=== PATIENT | male | born 1970 | race Caucasian/White ===

== ENCOUNTER 2017-09-16 18:35 | Inpatient (IN) | payer OTHER ==
--- NOTE | 2017-09-16 19:05 | PDOC ---
History of Present Illness - General Chief Complaint: Blood Pressure Problem Stated Complaint: ELEVATED BLOOD PRESSURE Time Seen by Provider: 09/16/17 19:05 Past History - Past Medical History Allergies/Adverse Reactions: Allergies Allergy/AdvReac Type Severity Reaction Status Date / Time No Known Allergies Allergy Verified 09/16/17 18:52 Home Medications: Ambulatory Orders NK [No Known Home Medication] 09/16/17 COPD: No HTN: Yes - Suicide/Smoking/Psychosocial Hx Smoking History: Never smoked Hx Alcohol Use: No Drug/Substance Use Hx: No *Physical Exam - Vital Signs Last Vital Signs Temp Pulse Resp BP Pulse Ox 99.0 F 66 20 172/105 99 09/16/17 18:52 09/16/17 18:52 09/16/17 18:52 09/16/17 18:52 09/16/17 18:52 *DC/Admit/Observation/Transfer - Referrals Referrals: Krystal Castorena MD [Primary Care Provider] - - Patient Instructions - Post Discharge Activity
--- NOTE | 2017-09-16 19:09 | PDOC ---
History of Present Illness - General Chief Complaint: Blood Pressure Problem Stated Complaint: ELEVATED BLOOD PRESSURE Time Seen by Provider: 09/16/17 19:05 - History of Present Illness Initial Comments: 47 year old male with PMH of HTN (medication non-compliant for the past two years) presenting with nausea, lightheadedness, and general weakness since this AM. He woke up with these symptoms suddenly this AM which relapsed and remitted until this afternoon at which point he went to [facility] and was found to be hypertensive to 170s. Denies headache, chest pain, vomiting, visual symptoms, diarrhea, cough, or other symptoms. 09/16/17 19:33 Past History - Past Medical History Allergies/Adverse Reactions: Allergies Allergy/AdvReac Type Severity Reaction Status Date / Time No Known Allergies Allergy Verified 09/16/17 18:52 Home Medications: Ambulatory Orders NK [No Known Home Medication] 09/16/17 COPD: No HTN: Yes - Suicide/Smoking/Psychosocial Hx Smoking History: Never smoked Hx Alcohol Use: No Drug/Substance Use Hx: No Review of Systems - Review of Systems Constitutional: No: Chills, Diaphoresis, Fever HEENTM: No: Eye Pain, Blurred Vision, Tearing Respiratory: No: Cough, Orthopnea, Shortness of Breath Cardiac (ROS): No: Chest Pain, Edema, Irregular Heart Rate ABD/GI: No: Diarrhea, Nausea, Poor Appetite, Vomiting : No: Dysuria, Discharge, Frequency Musculoskeletal: No: Back Pain, Gout, Joint Pain Integumentary: No: Lumps, Pallor, Pruritus, Rash Neurological: No: Headache, Numbness, Paresthesia Psychiatric: No: Anxiety, Depression Endocrine: No: Excessive Sweating, Flushing *Physical Exam - Vital Signs Last Vital Signs Temp Pulse Resp BP Pulse Ox 99.0 F 66 20 172/105 99 09/16/17 18:52 09/16/17 18:52 09/16/17 18:52 09/16/17 18:52 09/16/17 18:52 - Physical Exam General Appearance: Yes: Nourished, Appropriately Dressed. No: Apparent Distress HEENT: positive: EOMI, RACHAEL, Normal ENT Inspection, Normal Voice Neck: positive: Trachea midline, Normal Thyroid, Supple. negative: Tender, Rigid Respiratory/Chest: positive: Lungs Clear, Normal Breath Sounds. negative: Chest Tender, Respiratory Distress, Accessory Muscle Use Cardiovascular: positive: Regular Rhythm, Regular Rate Gastrointestinal/Abdominal: positive: Normal Bowel Sounds, Flat, Soft. negative : Tender Musculoskeletal: positive: Normal Inspection. negative: CVA Tenderness Extremity: positive: Normal Capillary Refill, Normal Inspection, Normal Range of Motion. 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 Will get head CT and basic labs. Spoke to Dr. Mckinnon and he had no records of the previous medications but would be happy to see the patient early next week baring that all the results are normal. 09/16/17 19:46 Labs are significant for hypokalemia (3.0), hypomagnesemia (1.4), hypocalcemia ( 5.6 corrected to 6.9), hypoalbunemia, hyperchloremia, and hypernatremia. EKG changes include V1 T wave inversion with possible Q wave inversion in lead III. QTc 426, SC 162, LVH, normal axis, no ST wave changes. 09/16/17 21:01 Spoke to Ino and will admit patient to tele with [place] as a consult given this could have been a presyncopal sensation related to these severe electrolyte derangement. Given the constellation of electrolyte abnormalities, hyperaldosternism should be investigated particualrly in the setting of hypertension. Patient signed out to Dave. 09/16/17 21:22 *DC/Admit/Observation/Transfer Diagnosis at time of Disposition: Lightheadedness, Hypernatremia, Hypokalemia, Hypocalcemia, Hypomagnesemia, Hypoalbuminemia, Hypochloremia - Discharge Dispostion Condition at time of disposition: Stable Decision to Admit order: Yes - Referrals Referrals: Krystal Castorena MD [Primary Care Provider] - - Patient Instructions - Post Discharge Activity
[2017-09-16] MEDS ORDERED: SODIUM CHLORIDE 0.9% 500 ML INFUS.BAG IV ONE (19:39)
[2017-09-16 19:44] LABS: BASO % 0.6 % (0-2.0); EOS % 1.5 % (0-4.5); HEMATOCRIT 40.4 % (35.4-49); LYMPH % 18.3 % (8-40); MCH 32.6 pg (25.7-33.7); MCHC 34.6 g/dl (32.0-35.9); MEAN CELL VOLUME 94.1 fl (80-96); MEAN PLT VOLUME 8.5 fl (7.5-11.1); MONO % 12.9 % (3.8-10.2); NEUT % 66.7 % (42.8-82.8); PLATELET COUNT 190 K/MM3 (134-434); RDW 13.2 % (11.9-15.9); WHITE BLOOD COUNT 7.4 K/mm3 (4.0-10.0)
[2017-09-16 19:46] VITALS: TEMP 99; BMI 29.5
--- NOTE | 2017-09-16 19:53 | PDOC ---
Attending Attestation - Resident Resident Name: Tonya Harper - ED Attending Attestation I have performed the following: I have examined & evaluated the patient, The case was reviewed & discussed with the resident, I agree w/resident's findings & plan, Exceptions are as noted - HPI HPI: 09/16/17 19:29 47 year old M c/ hx of HTN (not taking his medications for last 2 years) presents with lightheadedness. The patient reports feeling well yesterday and this morning. Approx at 8 am, the patient felt lightheaded and dizzy. Lasted for approximately 2 to 3 seconds. Resolved on its own and pt remained asymptomatic. Stated during that time, the patient was doing nothing in particular. Not exercising or exerting himself. Approx 5 pm, the patient was feeling lightheaded, dizzy, nauseous but denied chest pain, shortness of breath. Denied headache. No recent illnesses, fevers, chills, nausea, vomiting, diarrhea, dysuria. Stated lasted approx 20 to 30 min and resolved. He noted that his BP was elevated and pt came into ED. - Physicial Exam PE: 09/16/17 19:53 GENERAL: Awake, alert, and fully oriented, in no acute distress. HEAD: No signs of trauma EYES: PERRLA, EOMI, sclera anicteric, conjunctiva clear ENT: Auricles normal inspection, hearing grossly normal, nares patent NECK: Normal ROM, supple LUNGS: Breath sounds equal, clear to auscultation bilaterally. No wheezes, and no crackles HEART: Regular rate and rhythm, normal S1 and S2, no murmurs, rubs or gallops ABDOMEN: Soft, nontender. No guarding, no rebound. No masses EXTREMITIES: Normal range of motion, no edema. No clubbing or cyanosis. No cords, erythema, or tenderness NEUROLOGICAL: Cranial nerves II through XII grossly intact. Normal speech, SKIN: Warm, Dry, normal turgor, no rashes or lesions noted. - Medical Decision Making 09/16/17 19:54 Vital Signs Temp Pulse Resp BP Pulse Ox 99.0 F 65 18 184/134 99 09/16/17 18:52 09/16/17 19:39 09/16/17 19:39 09/16/17 19:39 09/16/17 19:39 I suspect that the patient is likely having vasovagal near syncope. The weather is warm near 90 degrees and was having symptoms that suggested vasovagal. However, given family history of cardiac disease and elevated BP of 184/134, this warrants a workup. Will obtain an ECG, head CT, labs, UA, troponin and touch base with the patient' s PMD. Will observe BP. And if does not lower, will consider BP medications. If BP and workup improved, will have patient follow up with PMD. However, if abnormal workup and/or persistent elevated BP, admit. 09/16/17 21:06 CBC, BMP 09/16/17 19:24 09/16/17 19:24 CMP Sodium 147 mmol/L (136-145) H 09/16/17 19:24 Potassium 3.0 mmol/L (3.5-5.1) L 09/16/17 19:24 Chloride 120 mmol/L (98-107) H 09/16/17 19:24 Carbon Dioxide 23 mmol/L (21-32) 09/16/17 19:24 Anion Gap 4 (8-16) L 09/16/17 19:24 BUN 12 mg/dL (7-18) 09/16/17 19:24 Creatinine 0.6 mg/dL (0.7-1.3) L 09/16/17 19:24 Creat Clearance w eGFR > 60 (>60) 09/16/17 19:24 Random Glucose 77 mg/dL (74-106) 09/16/17 19:24 Calcium 5.6 mg/dL (8.5-10.1) L* 09/16/17 19:24 Magnesium 1.4 mg/dL (1.8-2.4) L 09/16/17 Unknown Total Bilirubin 0.5 mg/dL (0.2-1.0) 09/16/17 19:24 AST 28 U/L (15-37) 09/16/17 19:24 ALT 25 U/L (12-78) 09/16/17 19:24 Alkaline Phosphatase 57 U/L (45-117) 09/16/17 19:24 Creatine Kinase 594 IU/L (39-308) H 09/16/17 19:24 Creatine Kinase Index 0.5 % (0.0-5.0) 09/16/17 19:24 CK-MB (CK-2) 3.435 ng/mL (0.5-3.6) 09/16/17 19:24 Troponin I < 0.02 ng/ml (0.00-0.05) 09/16/17 19:24 B-Natriuretic Peptide 10.32 pg/ml (5-125) 09/16/17 19:24 Total Protein 4.9 g/dl (6.4-8.2) L 09/16/17 19:24 Albumin 2.4 g/dl (3.4-5.0) L 09/16/17 19:24 Noted to have hypocalcium, hypokalemia, and hypomagnesium. This may potentially explain his lightheadedness. Should admit the patient for further telemetry and workup. Heart Score/ECG Review #1 ECG reviewed & interpreted by me at: 18:50 09/16/17 19:57 NSR 62, +LVH, no std/halima, normal axis, normal intervals, no brugada, no HOCM, no WPW, QTC 426 msec
[2017-09-16 20:24] LABS: ALBUMIN 2.4 g/dl (3.4-5.0); ANION GAP 4 (8-16); BLOOD UREA NITROGEN 12 mg/dL (7-18); CHLORIDE 120 mmol/L (98-107); CO2 23 mmol/L (21-32); CREATININE 0.6 mg/dL (0.7-1.3); GLUCOSE,RANDOM 77 mg/dL (74-106); SGOT/AST 28 U/L (15-37); SGPT/ALT 25 U/L (12-78); SODIUM 147 mmol/L (136-145); TOT PROT 4.9 g/dl (6.4-8.2)
[2017-09-16 20:27] LABS: ALK PHOS 57 U/L (45-117); BILIRUBIN,TOTAL 0.5 mg/dL (0.2-1.0); N-TERMINAL BNP 10.32 pg/ml (5-125)
[2017-09-16 20:30] LABS: CALCIUM 5.6 mg/dL (8.5-10.1)
[2017-09-16] MEDS ORDERED: CALCIUM GLUCONATE 10% - 1,000 MG/10 ML VIAL IVPB ONE (20:32)
[2017-09-16] MEDS ORDERED: POTASSIUM CHLORIDE TABS 20 MEQ TABLET.ER (FP) PO ONE ×2 (20:33→20:44)
[2017-09-16 20:56] LABS: URINE APPEARANCE CLEAR; URINE BILIRUBIN NEGATIVE (<2.0 mg/dL); URINE COLOR YELLOW; URINE GLUCOSE (UA) NEGATIVE (NEGATIVE); URINE KETONE NEGATIVE (NEGATIVE); URINE LEUK ESTERASE NEGATIVE (NEGATIVE); URINE NITRITE NEGATIVE (NEGATIVE); URINE PROTEIN NEGATIVE (NEGATIVE)
[2017-09-16] MEDS: MAGNESIUM SULFATE IN WATER 2 GM/50 ML IVPB IVPB SCH ×2 (21:58→22:17)
[2017-09-16] MEDS ORDERED: MAGNESIUM SULF 50% (8.12 MEQ/2 ML-1 GM VIAL) ONE (22:00)
[2017-09-17 05:45] LABS: HEMATOCRIT 42.5 % (35.4-49); HEMOGLOBIN 14.6 GM/dL (11.7-16.9); MCH 32.5 pg (25.7-33.7); MCHC 34.3 g/dl (32.0-35.9); MEAN CELL VOLUME 94.9 fl (80-96); MEAN PLT VOLUME 8.4 fl (7.5-11.1); PLATELET COUNT 178 K/MM3 (134-434); RBC 4.48 M/mm3 (4.00-5.60); RDW 13.4 % (11.9-15.9); WHITE BLOOD COUNT 7.2 K/mm3 (4.0-10.0)
[2017-09-17 06:11] LABS: ALBUMIN 3.1 g/dl (3.4-5.0); ANION GAP 4 (8-16); BLOOD UREA NITROGEN 13 mg/dL (7-18); CHLORIDE 109 mmol/L (98-107); CO2 28 mmol/L (21-32); GLUCOSE,RANDOM 97 mg/dL (74-106); MAGNESIUM 2.4 mg/dL (1.8-2.4); POTASSIUM 4.4 mmol/L (3.5-5.1); SGOT/AST 34 U/L (15-37); SGPT/ALT 31 U/L (12-78); SODIUM 141 mmol/L (136-145); TOT PROT 6.5 g/dl (6.4-8.2)
[2017-09-17 06:12] LABS: ALK PHOS 61 U/L (45-117)
[2017-09-17 09:39] VITALS: BP 136/88; PULSE 62
--- NOTE | 2017-09-17 10:12 | EKG ---
Test Reason : Blood Pressure : / mmHG Vent. Rate : 062 BPM Atrial Rate : 062 BPM P-R Int : 162 ms QRS Dur : 086 ms QT Int : 420 ms P-R-T Axes : 040 004 028 degrees QTc Int : 426 ms NORMAL SINUS RHYTHM MODERATE VOLTAGE CRITERIA FOR LVH, MAY BE NORMAL VARIANT CANNOT RULE OUT INFERIOR INFARCT , AGE UNDETERMINED ABNORMAL ECG NO PREVIOUS ECGS AVAILABLE Confirmed by CARLEY ANGLIN, KATE ([id number]) on 09/17/2017 10:12:47 AM Referred By: Confirmed By:KATE HOWE MD
--- NOTE | 2017-09-17 10:27 | PN ---
Progress Note (short form) - Note Progress Note: Patient left AMA this AM before being seen/ examined.
== END 2017-09-17 09:41 | disposition left against medical advice (07) | DRG 425 ==
LOC: JER 18:35 → JERBED 21:30
PROVIDERS: ADMIT Specialist; ATTEND Specialist
DX: E87.6 Hypokalemia (principal); R51 Headache; I10 Essential (primary) hypertension; E83.51 Hypocalcemia; E83.42 Hypomagnesemia; Z91.14 Patient's other noncompliance with medication regimen; E87.0 Hyperosmolality and hypernatremia
CPT/HCPCS: 36415; 70450-TC; 71045-TC-FY; 80053; 81003; 82550; 82553; 83735; 83880; 84484; 85025; 85027; 93005; 93010; 99285-25